=== PATIENT | female | born 1945 | race Caucasian/White ===

== ENCOUNTER 2019-09-02 13:57 | Outpatient (CLI) | payer MEDICARE, OTHER, SELFPAY ==
--- NOTE | 2019-09-02 14:03 | US_ITS ---
WS: [id number] ULTRASOUND RIGHT BREAST HISTORY: RT BREAST PAIN COMPARISON: Mammogram 06/29/2019 and 04/01/2016 TECHNIQUE: 2-D and Doppler. Patient describes pain within the breast. There is a small cyst at 10:00 measuring 4 x 3 x 4 mm. No i ncreased vascularity. No suspicious shadowing or mass identified. Normal normal fibroglandular patter n seen on the recent mammogram.. There are a few scattered calcifications. US/US breast RT complete [id number] IMPRESSION: BI-RADS: 2-Benign FOLLOW-UP: See Report No ultrasound abnormality RIGHT breast. Residual annual mammograms.
== END 2019-09-02 13:58 | disposition home or self-care (01) ==
PROVIDERS: Family Provider Family Medicine; PCP Family Medicine; Visit Provider Family Medicine
DX: N64.4 Mastodynia (principal)
CPT/HCPCS: 76641

== ENCOUNTER 2019-10-04 08:54 | Outpatient (CLI) | payer MEDICARE, OTHER, SELFPAY ==
[2019-10-04 09:15] VITALS: BMI 36.2
--- NOTE | 2019-10-04 09:17 | ECG_ITS ---
NAME OF STUDY: LEXISCAN SESTAMIBI STRESS TEST INDICATION: Chest Pain, NOTE: Please note that this is the electrocardiogram portion of the Lexiscan/Sestamibi stress test. The perfusion scan will be documented separately. DATA: Baseline heart rate was 42 beats per minute. Baseline blood pressure was 130/60 millimeters of mercury. Target heart rate was 148. Maximum heart rate achieved was 91. which was 61 % of the predicted target heart rate. Maximum blood pressure was 171/70 millimeters of mercury. The reason for ending the test was completion of the protocol. The patient did not experience any symptoms. ELECTROCARDIOGRAM: BASELINE: Sinus bradycardia. Normal axis. Otherwise, no ST-T changes suggestive of ischemia noted. No arrhythmia noted. EXERCISE: After Lexiscan injection, no ST-T changes suggestive of ischemic noted. No arrhythmia noted. CONCLUSION: Please note due to baseline abnormality of the EKG specificity and sensitivity of the EKG portion of LexiScan MIBI stress test will be low 1. EKG not suggestive of ischemia. Patient had sinus bradycardia at the baseline 2. Lexiscan injection unremarkable. 3. Perfusion scan will be documented separately. Electronically Signed On 10-04-2019 19:23:38 CDT by Michelle Villalpando M.D. [id number]
--- NOTE | 2019-10-04 09:18 | NMCV_ITS ---
NM trevor perf SPECT r/s* [id number] Hilda Crespo Age: 74 Gender: F : 1945 Exam Date: 10/04/2019 10:14 Ordering Phys: Darwin Peralta MD Technologist: JENNA Waite Exam Location: [facility] Indications: Chest pain STRESS TEST [facility] IMAGE PROTOCOL Rest/Stress 1 Lexiscan Day Radiopharmaceutical Dose (mCi) Administration Site Administered by Rest: Tc-99m 10.4 IV JENNA Waite Sestamibi Stress:Tc-99m 32.9 IV JENNA Waite Sestamibi Rest: 04-Oct-2019 60 Discovery 630 Stress: 04-Oct-2019 45 Discovery 630 0.4mg Lexiscan. Supine position only as patient was unable to lay prone. SPECT RESULTS Technical Quality: Good Raw Data Analysis: Breast attenuation Image Corrections: No attenuation or motion correction applied Summed Stress Score: 4 Summed Rest Score: 6 Summed Difference Score: 2 PERFUSION FINDINGS Small sized perfusion abnormality of mild severity of mid to apical inferolateral, apical inferior, apical septal and apical blanc on rest images with subtle reversibility in apical inferolateral wall on supine stress images. There is improved tracer uptake in apical blanc on stress images. FUNCTIONAL RESULTS (calculated via Gated SPECT) Stress Image LV EF (%): 63 Stress EDV (mL):72 TID: 0.95 Stress ESV (mL):27 FUNCTIONAL FINDINGS: The left ventricle is normal in size. Transient Ischemia Dilatation of 0.95. There is normal left ventricular systolic function. The left ventricular ejection fraction is normal with a value of 63%. There is normal left ventricular wall thickening. Normal end-diastolic and end-systolic volume. IMPRESSIONS 1. Small sized perfusion abnormality of mid to apical inferolateral, apical inferior, apical septal and apical blanc with improved tracer uptake in apical blanc on stress images. There is subtle reversibility in apical inferolateral wall on supine stress images. 2. These findings are likely suggestive of attenuation artifact in absence of prone imaging. 3. Overall left ventricular systolic function is normal without regional wall motion abnormalities. 4. The left ventricular ejection fraction is normal with a value of 63%. 5. No prior similar studies to compare. Sowmya Garcia MD (Electronically Signed) Final Date: 05 Oct 2019 13:25 S
[2019-10-04 10:59] VITALS: BP 163/71; PULSE 79
[2019-10-04] MEDS: regadenoson 0.4 Mg/5 ml Syringe IVP (10:59)
[2019-10-04] MEDS: aminophylline 25 mg/mL SDV 10 mL IVP (11:09)
== END 2019-10-04 08:55 | disposition home or self-care (01) ==
LOC: RAD 08:59
PROVIDERS: Family Provider Family Medicine; PCP Family Medicine; Visit Provider Internal Medicine Cardiovascular Disease
DX: R07.9 Chest pain, unspecified (principal)
CPT/HCPCS: 78452; 93017; 96374; A9500; J0280; J2785

== ENCOUNTER → 2020-03-08 14:25 | Outpatient (BNVA) | payer MEDICARE, OTHER, SELFPAY | PROVIDERS: Family Provider Family Medicine; PCP Family Medicine; Visit Provider Obstetrics & Gynecology | DX: R32 Unspecified urinary incontinence (principal) | CPT/HCPCS: 80053 ==

== ENCOUNTER 2020-05-11 15:24 | Outpatient (CLI) | payer MEDICARE, OTHER, SELFPAY ==
--- NOTE | 2020-05-11 15:40 | CT_ITS ---
WS: [id number] CT LUMBAR SPINE TECHNIQUE: Noncontrast CT of the lumbar spine with coronal and sagittal reformatted images. CLINICAL INFORMATION: POST LAMINECTOMY SYNDROME COMPARISON: CT 7 16,019 DLP: 1852.[address] scans at [facility] use at least one of these dose optimization techniques: automat ed exposure control; mA and/or kV adjustment per patient size (includes targeted exams where dose is matched to clinical indication); or iterative reconstruction. FINDINGS: Mild lumbar curve convex right. Moderate spondylitic changes. Disc space narrowing throughout the lum bar spine with vacuum disc phenomenon. Pedicle screw fixation L4-5. Hardware appears intact. Interbod y fusion L4-5. Right L4-L5 and L5-S1 hemilaminectomies. L1-L2: Mild disc osteophyte complex with endplate ridging. Moderate left and no significant right for aminal narrowing. Mild facet arthropathy. Slight narrowing of the left subarticular recess. L2-L3: Disc osteophyte complex with endplate ridging. Slight impingement on the left subarticular rec ess. Moderate left and no significant right foraminal narrowing. Mild facet arthropathy. L3-L4: Right shallow subarticular protrusion. Impingement right subarticular recess. Mild left and no significant right foraminal narrowing. Mild facet arthropathy. Mild central canal stenosis. Mild fac et arthropathy. L4-L5: Pedicle screw fixation with interbody fusion. Spinal canal and foramen are patent. L5-S1: Mild disc bulging with osteophytic ridging. Vacuum disc phenomenon. Mild to moderate left and mild right foraminal narrowing. Mild facet arthropathy. Visualized pelvic bony structures: Normal. Paravertebral soft tissues: Normal. Incidental sclerotic bone island left sacrum. CT/CT lumbar spine wo con* [id number] IMPRESSION: 1. Mild lumbar curve. No acute compression. Stable postoperative changes pedic le screw fixation L4-5 with interbody fusion. 2. Mild central canal stenosis L3-4 is stable from previous. 3. Multilevel mild to moderate bony foraminal narrowing worse at left L1-2, le ft L2-3, left L3-4 and left L5-S1. 4. Shallow right subarticular protrusion L3-4 with mild central canal stenosis is unchanged. 5. Overall no significant changes since 2019
== END 2020-05-11 15:25 | disposition home or self-care (01) ==
LOC: RADWPI 15:29
PROVIDERS: PCP Family Medicine; Visit Provider Anesthesiology Pain Medicine
DX: M96.1 Postlaminectomy syndrome, not elsewhere classified (principal); M51.26 Other intervertebral disc displacement, lumbar region; M48.061 Spinal stenosis, lumbar region without neurogenic claudication
CPT/HCPCS: 72131

== ENCOUNTER 2021-01-30 12:15 | Outpatient (CLI) | payer MEDICARE, OTHER, SELFPAY | END 2021-01-30 12:16 | disposition home or self-care (01) | LOC: SLEEP 01-31 15:36 | PROVIDERS: PCP Family Medicine; Visit Provider Family Medicine | DX: G47.10 Hypersomnia, unspecified (principal) | CPT/HCPCS: G0399 ==

== ENCOUNTER 2022-01-24 12:46 | Outpatient (CLI) | payer MEDICARE, OTHER, SELFPAY ==
--- NOTE | 2022-01-24 12:56 | MM_ITS ---
WS: [id number] BILATERAL 3D TOMOSYNTHESIS DIGITAL DIAGNOSTIC MAMMOGRAPHY WITH CAD CLINICAL INFORMATION: ABNORMAL MAMMO COMPARISON: Outside examination December 26, 2021 TECHNIQUE: Bilateral CC, MLO, and ML views. FINDINGS: Scattered fibroglandular densities bilaterally. Punctate and lucent centered calcifications. Secretor y calcifications. Vascular calcification. Bilateral nodular breast tissue is similar in appearance to the outside examination. Ultrasound described below. ULTRASOUND BREAST BILATERAL TECHNIQUE: Ultrasound bilateral breast focused area of concern. CLINICAL INFORMATION: ABNORMAL MAMMO COMPARISON: None. FINDINGS: Ultrasound RIGHT breast 9-11 o'clock and ultrasound LEFT breast 3-5 o'clock Simple breast cysts are noted bilaterally. Largest in the RIGHT breast at the 11:00 position measurin g 5 x 4 x 5 mm. Sr. subcentimeter in size. No suspicious lesions to target for biopsy. Recommend retu rn to annual screening mammography. MM/[place] [id number] IMPRESSION: BI-RADS 2 benign Recommend return to annual screening mammography.
== END 2022-01-24 12:47 | disposition home or self-care (01) ==
LOC: RAD 12:47
PROVIDERS: PCP Family Medicine; Visit Provider Family Medicine
DX: R92.8 Other abnormal and inconclusive findings on diagnostic imaging of breast (principal)
CPT/HCPCS: 76642; 77062

== ENCOUNTER → 2022-10-07 14:23 | Outpatient (BNVA) | payer MEDICARE, OTHER, SELFPAY | PROVIDERS: PCP Family Medicine; Visit Provider Physician Assistant | DX: Z98.1 Arthrodesis status (principal) | CPT/HCPCS: 99203 ==

== ENCOUNTER → 2022-10-07 14:25 | Outpatient (BNVA) | payer MEDICARE, OTHER, SELFPAY | PROVIDERS: PCP Family Medicine; Visit Provider Physician Assistant | DX: M54.50 Low back pain, unspecified (principal); Z98.1 Arthrodesis status | CPT/HCPCS: 72110; 99203 ==

== ENCOUNTER 2022-10-15 09:49 | Outpatient (CLI) | payer MEDICARE, OTHER, SELFPAY ==
--- NOTE | 2022-10-15 10:15 | MR_ITS ---
WS: [id number] MRI LUMBAR SPINE NONCONTRAST TECHNIQUE: Sagittal T1, T2 and STIR imaging. Axial T1 and T2 imaging. CLINICAL INFORMATION: lower back pain COMPARISON: CT 2019 and MRI 2008 FINDINGS: Prior postoperative changes pedicle screw fixation L4 and L5 with interbody fusion. Associated rosita ctomy defects. Disc bulging worse at L1-L2, L2-L3, L3-L4. L1-L2: Mild disc bulging with slight effacement of ventral thecal sac. Slight impingement on the LEFT subarticular recess and traversing LEFT L2 nerve root. Mild to moderate LEFT foraminal narrowing. RI GHT foramen is patent. Mild facet arthropathy. L2-L3: Mild annular bulging. Impingement LEFT subarticular recess. Moderate facet arthropathy. Modera te LEFT foraminal narrowing. Mild RIGHT foraminal narrowing. L3-L4: Mild disc bulging with mild central canal stenosis. Impingement traversing L4 nerve roots RIGH T greater than LEFT. Moderate facet arthropathy. Mild RIGHT greater than LEFT foraminal narrowing. L4-L5: Slight anterolisthesis L4 on L5. Pedicle screw fixation with laminectomy defects. Mild RIGHT f oraminal narrowing. LEFT foramen is patent. Spinal canal has been decompressed. L5-S1: Postoperative changes pedicle screw fixation with laminectomy defects. Spinal canal is patent. 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 Mild LEFT greater than RIGHT bony foraminal narrowing. Moderate facet arthropathy. Visualized pelvic bony structures: Normal. Paravertebral soft tissues: Normal. MR/MR lumbar spine wo con* [id number] IMPRESSION: 1. Mild lumbar curve. No acute compression. 2. Pedicle screw fixation L4-L5 laminectomy defects. Interbody fusion. 3. 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 Mild to moderate central canal stenosis L3-L4 progressed since 2010. Imping ement on the RIGHT greater than LEFT subarticular recess. 5. Disc bulging L1-L2 and L2-L3 with impingement on the LEFT subarticular rece ss 6. Mild to moderate LEFT L1-L2, moderate LEFT L2-L3, moderate RIGHT L3-L4 and mild bilateral L5-S1 foraminal narrowing.
== END 2022-10-15 09:50 | disposition home or self-care (01) ==
LOC: RAD 09:56
PROVIDERS: PCP Family Medicine; Visit Provider Physician Assistant
DX: M48.061 Spinal stenosis, lumbar region without neurogenic claudication (principal); M51.36 Other intervertebral disc degeneration, lumbar region; M54.50 Low back pain, unspecified
CPT/HCPCS: 72148; 99203

== ENCOUNTER 2022-11-04 11:49 | Outpatient (RCR) | payer MEDICARE, OTHER, SELFPAY | END 2022-11-27 23:59 | disposition home or self-care (01) | LOC: SPT 11:49 | PROVIDERS: PCP Family Medicine; Visit Provider Physician Assistant | DX: M25.562 Pain in left knee (principal) | CPT/HCPCS: 97110; 97162 ==

== ENCOUNTER 2022-11-06 16:14 | Emergency (ER) | payer MEDICARE, OTHER, SELFPAY ==
[2022-11-06 16:18] VITALS: BP 195/67; PULSE 60; RESP 16; TEMP 36.6; O2SAT 96; BMI 35.6
--- NOTE | 2022-11-06 16:23 | ECG_ITS ---
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 Measurements Intervals Thornton Rate: 52 P: -53 MO: 311 QRS: 68 QRSD: 103 T: 66 QT: 373 QTc: 348 Interpretive Statements SINUS RHYTHM BASELINE ARTIFACT No previous ECG available for comparison Electronically Signed On 11-06-2022 17:59:08 CDT by Apollo Cota M.D. [id number]
--- NOTE | 2022-11-06 16:23 | CTR_ITS ---
PROCEDURE INFORMATION: Exam: CT Head Without Contrast Exam date and time: 11/06/2022 4:36 PM Age: 77 years old Clinical indication: Altered mental status/memory loss; Confusion or disorientation TECHNIQUE: Imaging protocol: Computed tomography of the head without contrast. Radiation optimization: All CT scans at this facility use at least one of these dose optimization techniques: automated exposure control; mA and/or kV adjustment per patient size (includes targeted exams where dose is matched to clinical indication); or iterative reconstruction. REPORTING DATA: Count of CT and Cardiac NM exams in prior 12 months: This patient has received 0 known CTs and 0 known cardiac nuclear medicine studies in the 12 months prior to the current study. COMPARISON: No relevant prior studies available. RADIATION DOSE METRICS: Total DLP (mGy-cm): 935 FINDINGS: Brain: No hemorrhage. No edema. Mild diffuse cerebral atrophy. No significant white matter disease. No mass effect. Cerebral ventricles: No ventriculomegaly. Paranasal sinuses: Visualized sinuses are unremarkable. No fluid levels. Mastoid air cells: Visualized mastoid air cells are well aerated. Bones/joints: Unremarkable. No acute fracture. Soft tissues: Unremarkable. CT/CT head wo con* [id number] IMPRESSION: No acute intracranial abnormality.
--- NOTE | 2022-11-06 16:35 | ED_ITS ---
HPI - Altered Mental Status General: Chief Complaint: Altered Mental Status Stated Complaint: stroke like symptoms Time Seen by Provider: 11/06/22 16:23 [facility] ED PFSH: Medical History Arthritis Asthma Chest pain Diabetes mellitus HTN (hypertension) Osteoporosis Surgical History Previous back surgery X2 S/P shoulder surgery Left rotator cuff surgery S/P total abdominal hysterectomy and bilateral salpingo-oophorectomy (~1995) [place] Pritchard [place] [facility] [place], [place] 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 Kam Family History Father Myocardial infarction Brother Cancer colon ca Social History Smoking and tobacco status: former smoker Alcohol intake: never Substance/Drug Use: never Course Vital Signs: Vital signs: Vital Signs Temperature 97.9 F 11/06/22 16:18 Pulse Rate 60 11/06/22 16:18 Respiratory Rate 16 11/06/22 16:18 Blood Pressure 195/67 11/06/22 16:18 Pulse Oximetry 96 11/06/22 16:18 Oxygen Delivery Me thod Room Air 11/06/22 16:18 Discharge Plan Discharge Condition: Stable Prescriptions: No Action simvastatin 20 mg tablet 20 mg PO DAILY loratadine [Claritin] 10 mg tablet 10 mg PO DAILY metformin 1,000 mg tablet 1,000 mg PO DAILY Mucinex DM 30-600 mg tablet extended release 12 hr 1 tab PO Q12H PRN venlafaxine 75 mg tablet 18.75 mg PO DAILY hydrocodone-acetaminophen 10-325 mg tablet 2 tab PO QID PRN alprazolam 0.5 mg tablet 0.5 mg PO DAILY trazodone 50 mg tablet 50 mg PO DAILY Rx Instructions: 150mg AM and 50mg in PM baclofen 10 mg tablet 10 mg PO TID oxybutynin chloride 10 mg tablet extended release 24hr 10 mg PO DAILY celecoxib [Celebrex] 200 mg capsule 200 mg PO DAILY Metamucil 3.4 gram/5.4 gram powder 1 tbsp PO DAILY Rx Instructions: mix into at least 8 oz of water or juice before administering lisinopril 10 mg tablet 10 mg PO BID 90 Days Qty: 180 3RF Referrals: Darwin Peralta MD [Primary Care Provider] - Patient Instructions: Altered Mental Status (ED), Alcohol Intoxication (ED), Benzodiazepine Use Disorder (ED), Concussion (ED), Dementia (ED), Subarachnoid Hemorrhage (GEN), Hyponatremia (ED), Non-diabetic Hypoglycemia (ED), Hypoglycemia in a Person with Diabetes (ED) Coding Level of Care Code ED Napper Grinder for Oumar Bradley
--- NOTE | 2022-11-06 16:38 | W.ED.NEUROSD ---
HPI - Neuro Symptoms/Deficit General: Chief Complaint: Altered Mental Status Stated Complaint: stroke like symptoms Time Seen by Provider: 11/06/22 16:23 Source: patient Mode of arrival: ambulatory History of Present Illness: 77-year-old female presents emergency room complaining of feeling confused and difficulty speaking this morning. She was last known to be well last night around 9:00. She woke up this morning she was confused somewhat disoriented difficult time making a phone call. Patient and the family relate that she tried to use her TENS unit for her back to make a phone call. She was supposed to have a physical therapy appointment this afternoon at 1 was not able to get a hold of them states she lost the phone number. Earlier she was having some difficulty with her speech that seems to have resolved now. She denies any headache no chest pain. Onset (ago): hour(s) (20) Last Observed Normal: 21:00 Location: speech Severity: mild Relieving factors: none Exacerbating factors: none Associated symptoms: Deny chest pain, cough, diaphoresis, fevers/chills, headache(s), anorexia, malaise, nausea, seizures, short of breath, syncope, tingling, vertigo, vomiting or weakness Treatments Prior to Arrival: none Review of Systems Const: Reports: fatigue; Denies: fever(s), chills, malaise or diaphoresis ENMT: Denies: throat pain, ear or mastoid pain, nasal discharge or nasal congestion Card: Denies: chest pain, palpitations, irregular heart rhythm or syncope Resp: Denies: dyspnea, productive cough or non-productive cough GI: Denies: abdominal pain, nausea or vomiting : Denies: flank pain, difficulty voiding, dysuria, urinary frequency or urinary urgency Musc: Denies: neck pain or back pain Skin/Breast: Denies: rash or pruritus Neuro: Reports: weakness in extremities; Denies: headache(s), numbness in extremities or vertigo PFSH ED PFSH: Medical History Arthritis Asthma Chest pain Diabetes mellitus HTN (hypertension) Osteoporosis Surgical History Previous back surgery X2 S/P shoulder surgery Left rotator cuff surgery S/P total abdominal hysterectomy and bilateral salpingo-oophorectomy (~1995) [place] [facility] [place] 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 Kam Family History Father Myocardial infarction Brother Cancer colon ca Social History Smoking and tobacco status: former smoker Alcohol intake: never Substance/Drug Use: never NIH stroke score NIHSS: Level Of Consciousness - 1a: 0 Level Of Consciousness Questions - 1b: Both Correct Level Of Consciousness Commands - 1c: Both Correct Best Gaze - 2: Normal Visual Karimi - 3: No Visual Loss Facial Palsy - 4: Normal Motor Arm Right - 5: No Drift Motor Arm Left - 5: No Drift Motor Leg Right - 6: No Drift Motor Leg Left - 6: No Drift Limb Ataxia - 7: Absent Sensory - 8: Normal Best Language - 9: No Aphasia Dysarthia - 10: Normal Extinction And Inattention - 11: 0 Score: Total Score: 0 Physical Exam Const: GENERAL APPEARANCE: cooperative and comfortable ORIENTATION/CONSCIOUSNESS: Yes awake, Yes oriented to person, Yes oriented to place and Yes oriented to time HENMT: COMMON NORMALS: normocephalic, atraumatic and hearing grossly normal bilaterally HEAD & SCALP: normocephalic and atraumatic Resp: COMMON NORMALS: normal respiratory effort, No retractions, No use of accessory muscles and clear to auscultation bilaterally AUSCULTATION: clear to auscultation bilaterally Cardio: COMMON NORMALS: regular rate, regular rhythm and No murmurs present (Cardio) RATE: regular rate RHYTHM: regular rhythm GI: COMMON NORMALS: Soft to palpation and No hepatosplenomegaly present AUSCULTATION: Yes normoactive bowel sounds PALPATION: Yes Soft to palpation, No Tenderness to palpation present (GI), No Guarding due to palpation present (GI) and Yes No hepatosplenomegaly present Extremity: COMMON NORMALS: normal to inspection, capillary refill normal, no clubbing, cyanosis or edema, no calf tenderness and no pedal edema Neuro: SENSORIUM/ORIENTATION: Yes oriented to person, Yes oriented to place and Yes oriented to time Skin: COMMON NORMALS: no rashes or lesions noted GENERAL SKIN EXAM: no rashes or lesions noted Course Vital Signs: Vital signs: Vital Signs Temperature 97.9 F 11/06/22 16:18 Pulse Rate 60 11/06/22 16:18 Respiratory Rate 16 11/06/22 16:18 Blood Pressure 153/72 11/06/22 17:34 Pulse Oximetry 96 11/06/22 16:18 Oxygen Delivery Me thod Room Air 11/06/22 16:18 MDM - Neuro Symptoms/Deficit Medical Decision Making Patient awake alert and oriented no focal neurologic deficits noted NIH score is still 0. She is convinced that she may have taken extra medicine which caused her to be confused earlier this morning. While this certainly possible and we cannot confirm it she is asymptomatic now head CT is negative remainder of her work-up is negative. We will discharge patient home started on Plavix and aspirin as well as atorvastatin 40 mg daily. Set her up for an outpatient MRI carotid duplex echocardiogram and 48-hour Holter monitor return if has any further problems. Medical Records I reviewed the patient's medical records. Lab Data I reviewed the patient's lab results. 11/06/22 16:45 11/06/22 16:[address] 11/06/22 16:23 IMPRESSION: No acute intracranial abnormality. Laboratory Results WBC 7.8 10^3/uL (4.0-10.0) 11/06/22 16:45 RBC 5.23 10^6/uL (4.1-5.3) 11/06/22 16:45 Hgb 15.2 g/dL (11.5-15.3) 11/06/22 16:45 Hct 49.5 % (37.0-47.0) H 11/06/22 16:45 MCV 94.6 fl (81-99) 11/06/22 16:45 MCH 29.1 pg (28.0-34.0) 11/06/22 16:45 MCHC 30.7 g/dL (30.0-36.0) 11/06/22 16:45 RDW 13.3 % (12.1-15.1) 11/06/22 16:45 Plt Count 200 10^3/cmm (130-400) 11/06/22 16:45 MPV 8.9 fL (7.4-10.4) 11/06/22 16:45 Neut % (Auto) 78.4 % 11/06/22 16:45 Lymph % (Auto) 16.4 % 11/06/22 16:45 [place] % (Auto) 3.1 % 11/06/22 16:45 Eos % (Auto) 1.3 % 11/06/22 16:45 Baso % (Auto) 0.4 % 11/06/22 16:45 Neut # (Auto) 6.08 10^3/uL (1.8-7.7) 11/06/22 16:45 Lymph # (Auto) 1.3 10^3/uL (0.8-4.8) 11/06/22 16:45 [place] # (Auto) 0.2 10^3/uL (0.2-0.9) 11/06/22 16:45 Eos # (Auto) 0.1 10^3/uL (0.0-0.8) 11/06/22 16:45 Baso # (Auto) 0.0 10^3/uL (0.0-0.1) 11/06/22 16:45 Nucleated RBC % (auto) 0 % 11/06/22 16:45 Nucleated RBCs # 0.0 /100WBC 11/06/22 16:45 Sodium 143 mmol/L (136-145) 11/06/22 16:45 Potassium 4.9 mmol/L (3.5-5.1) 11/06/22 16:45 Chloride 106 mmol/L (98-107) 11/06/22 16:45 Carbon Dioxide 26 mmol/L (22-29) 11/06/22 16:45 Anion Gap 15.9 (5-19) 11/06/22 16:45 BUN 31 mg/dL (8-23) H 11/06/22 16:45 Creatinine 1.3 mg/dL (0.5-0.9) H 11/06/22 16:45 GFR Calculation Not Reportable 11/06/22 16:45 Glucose 140 mg/dL (65-115) H 11/06/22 16:45 POC Glucose 157 mg/dL (70-110) H 11/06/22 17:12 Calculated Osmolality 305 mOsm/kg (285-295) H 11/06/22 16:45 Lactic Acid 2.2 mmol/L (0.5-2.2) 11/06/22 16:45 Calcium 10.8 mg/dL (8.5-10.5) H 11/06/22 16:45 Total Bilirubin 0.4 mg/dL (0.15-1.2) 11/06/22 16:45 AST 13 U/L (0-32) 11/06/22 16:45 ALT 18 U/L (0-33) 11/06/22 16:45 Alkaline Phosphatase 69 U/L (35-105) 11/06/22 16:45 Creatine Kinase 19 U/L (26-192) L 11/06/22 16:45 Total Protein 6.8 g/dL (6.6-8.7) 11/06/22 16:45 Albumin 4.3 g/dL (3.5-5.2) 11/06/22 16:45 Globulin 2.5 g/dL (1.3-4.6) 11/06/22 16:45 Discharge Plan Discharge Patient Disposition: Home Clinical Impression: TIA (transient ischemic attack) Condition: Stable Prescriptions: New clopidogrel 75 mg tablet 75 mg PO DAILY Qty: 30 0RF atorvastatin 40 mg tablet 40 mg PO DAILY Qty: 30 0RF aspirin 81 mg tablet,delayed release (DR/EC) 81 mg PO DAILY Qty: 30 0RF Discontinued simvastatin 20 mg tablet 20 mg PO DAILY No Action loratadine [Claritin] 10 mg tablet 10 mg PO DAILY metformin 1,000 mg tablet 1,000 mg PO DAILY Mucinex DM 30-600 mg tablet extended release 12 hr 1 tab PO Q12H PRN venlafaxine 75 mg tablet 18.75 mg PO DAILY hydrocodone-acetaminophen 10-325 mg tablet 2 tab PO QID PRN alprazolam 0.5 mg tablet 0.5 mg PO DAILY trazodone 50 mg tablet 50 mg PO DAILY Rx Instructions: 150mg AM and 50mg in PM baclofen 10 mg tablet 10 mg PO TID oxybutynin chloride 10 mg tablet extended release 24hr 10 mg PO DAILY celecoxib [Celebrex] 200 mg capsule 200 mg PO DAILY Metamucil 3.4 gram/5.4 gram powder 1 tbsp PO DAILY Rx Instructions: mix into at least 8 oz of water or juice before administering lisinopril 10 mg tablet 10 mg PO BID 90 Days Qty: 180 3RF Discharge Orders: Discharge ED (Routine); Ordered 11/06/22 Ordered By: Ivan Page Referrals: Darwin Peralta MD [Primary Care Provider] - Patient Instructions: Transient Ischemic Attack (ED) Activity Restrictions/Additional Instructions: You are seen today for TIA. All your symptoms have resolved. CT of your head was negative. Recommend that you start aspirin and clopidogrel daily as well as atorvastatin 40 mg daily Case management make arrangements for you to follow-up with an outpatient MRI of the head carotid duplex and echocardiogram. 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
[2022-11-06 16:58] LABS: Basophils % 0.4 %; Eosinophils # 0.1 10^3/uL (0.0-0.8); Eosinophils % 1.3 %; Hematocrit 49.5 % (37.0-47.0); Hemoglobin 15.2 g/dL (11.5-15.3); Lymphocytes # 1.3 10^3/uL (0.8-4.8); Lymphocytes % 16.4 %; Mean Corpuscular HGB Conc 30.7 g/dL (30.0-36.0); Mean Corpuscular Hemoglobin 29.1 pg (28.0-34.0); Mean Corpuscular Volume 94.6 fl (81-99); Mean Platelet Volume 8.9 fL (7.4-10.4); Monocytes # 0.2 10^3/uL (0.2-0.9); Monocytes % 3.1 %; Neutrophils # 6.08 10^3/uL (1.8-7.7); Neutrophils % 78.4 %; Nucleated Red Blood Cells % 0 %; Platelet Count 200 10^3/cmm (130-400); Red Blood Count 5.23 10^6/uL (4.1-5.3); Red Cell Distribution Width 13.3 % (12.1-15.1); White Blood Count 7.8 10^3/uL (4.0-10.0)
[2022-11-06 17:15] LABS: Glucose Point of Care 157 mg/dL (70-110)
[2022-11-06 17:34] VITALS: BP 153/72
[2022-11-06 17:34] LABS: Alanine Aminotransferase 18 U/L (0-33); Albumin Level 4.3 g/dL (3.5-5.2); Alkaline Phosphatase 69 U/L (35-105); Anion Gap 15.9 (5-19); Aspartate Amino Transferase 13 U/L (0-32); Blood Urea Nitrogen 31 mg/dL (8-23); Calcium 10.8 mg/dL (8.5-10.5); Carbon Dioxide 26 mmol/L (22-29); Chloride 106 mmol/L (98-107); Creatine Phosphokinase 19 U/L (26-192); Globulin 2.5 g/dL (1.3-4.6); Glucose 140 mg/dL (65-115); Osmolality Calculated 305 mOsm/kg (285-295); Potassium 4.9 mmol/L (3.5-5.1); Sodium 143 mmol/L (136-145); Total Bilirubin 0.4 mg/dL (0.15-1.2); Total Protein 6.8 g/dL (6.6-8.7)
[2022-11-06 17:35] LABS: Lactic Sepsis W/Reflex 2.2 mmol/L (0.5-2.2)
--- NOTE | 2022-11-06 17:40 | ECG_ITS ---
[facility] Test Date: 2022-11-06 Pat Name: Hilda Crespo Department: Room: Gender: Female Senior It Auditor: : 1945 Requested By: Ivan Bautista Order Number: [id number] Oni MD: Apollo Cota M.D. Measurements Intervals [place] Rate: 52 P: 65 [place]: 188 QRS: 70 QRSD: 99 T: 60 QT: 378 QTc: 354 Interpretive Statements SINUS BRADYCARDIA WITH SINUS ARRHYTHMIA Compared to ECG 11/06/2022 16:48:46 Sinus rhythm no longer present Electronically Signed On 11-06-2022 18:45:52 CDT by Apollo Cota M.D. [id number] f
[2022-11-06 18:41] LABS: Reflex Lactate Order REFLEX LACTIC ORDERD
--- NOTE | 2022-11-07 09:30 | DCPLANNER ---
Addendum entered by Traci Lynn 12/05/22 10:49: Patient had a halter monitor scheduled - patient did attend appointment. Addendum entered by Traci Lynn 12/05/22 10:47: Patient had a carotid scheduled - patient did attend appointment. Addendum entered by Traci Lynn 12/05/22 10:46: Patient had an MRI and an echo scheduled - patient attended both appointments. Addendum entered by Traci Lynn 11/14/22 09:19: Patient has a follow up appointment scheduled for Friday, December 23, 2022 at 3:[address] Kaplan at neurology. Addendum entered by Traci Lynn 11/11/22 10:19: Patient has the following appointments scheduled: MRI - Thursday, 6.27.23 at 2:30 Echo - Thursday, 06.27.23 at 1:00 Carotid - Thursday, .27.23 by 1:45 48 hour halter - Thursday, 06.21.23 at 9:00 Original Note: logistics planning manager had message to schedule an outpatient MRI, echo and carotid. logistics planning manager faxed signed order to centralized scheduling, who will call patient with appointment information. logistics planning manager had message to schedule an out patient 48 hour halter monitor - case folder faxed signed order to heart care, who will call patient with appointment information.
--- NOTE | 2022-11-07 09:33 | DCPLANNER ---
Addendum entered by Traci Lynn 12/25/22 07:25: Appointment with neurology was cancelled Original Note: casino duty manager had message to schedule a follow up appointment for patient with neurology. casino duty manager sent patients information to the front office staff at neurology. Patients information will be printed and reviewed. Clinic will call patient with appointment information.
== END 2022-11-06 18:21 | disposition home or self-care (01) ==
PROVIDERS: Emergency Provider Family Medicine; PCP Family Medicine
DX: G45.9 Transient cerebral ischemic attack, unspecified (principal); E11.9 Type 2 diabetes mellitus without complications; I10 Essential (primary) hypertension
CPT/HCPCS: 36415; 36416; 70450; 80053; 82550; 82962; 83605; 85025; 93005; 99285

== ENCOUNTER → 2022-11-19 08:37 | Outpatient (BNVA) | payer MEDICARE, OTHER, SELFPAY | PROVIDERS: PCP Family Medicine; Visit Provider Internal Medicine Cardiovascular Disease | DX: R07.9 Chest pain, unspecified (principal); G45.9 Transient cerebral ischemic attack, unspecified | CPT/HCPCS: 93225 ==

== ENCOUNTER 2022-11-25 12:20 | Outpatient (CLI) | payer MEDICARE, OTHER, SELFPAY ==
--- NOTE | 2022-11-25 12:56 | USCV_ITS ---
Hilda Crespo Age: 77 Gender: F : 1945 Exam Date: 11/25/2022 14:01 Ordering Phys: Ivan Page DO Technologist: CT [place]am [place] [facility] [place]ication: tia Risk Factors: Previous Vascular Surgery: Right Brachial BP: / Left Brachial BP: / Right Left Velocity (cm/s) Spectral Plaque Velocity (cm/s) Spectral Plaque Syst/Diast Broadening Syst/Diast Broadening 68.30/ 10.30 Prox CCA 98.20 / 10.10 63.70/ 10.60 Mid CCA 92.10 / 14.20 59.20/ 10.90 Distal CCA 58.70 / 14.20 41.00/ 11.40 Prox ICA 49.50 / 12.70 68.90/ 21.10 Mid ICA 52.10 / 14.20 73.00/ 19.80 Distal ICA 61.80 / 15.40 53.20 ECA 65.60 1.07 ICA/CCA 0.63 Antegrade Vertebral Antegrade 44.40/ 11.10 cm/s 55.20/ 14.00 cm/s Tri Subclavian Tri 109.1 127.9 0 0 FINDINGS Comparison: none available. No significant elevation of systolic or diastolic velocities. Waveforms are normal. Minimal bilateral, intimal thickening with no elevation of velocity. CONCLUSIONS Bilateral ICA stenosis less than 50%. Minimal carotid atherosclerosis. Dr. Amanda Chaudhari DO (Electronically Signed) Final Date: 25 November 2022 16:39 S
--- NOTE | 2022-11-25 13:08 | USCV_ITS ---
Hilda Crespo Age: 77 Gender: F : 1945 Exam Date: 11/25/2022 14:29 Ordering Phys: Ivan Page DO Technologist: CT Exam Location: [facility] [place] Indication: sob BP: 145 / 80 HR: 44 Rhythm: Sinus Technical Quality: Adequate MEASUREMENTS (Male / Female) Normal Values 2D ECHO LV Diastolic Diameter PLAX 5.6 cm 4.2 - 5.9 / 3.9 - 5.3 cm LV Systolic Diameter PLAX 3.2 cm LV Chamber Size 2.9 cm IVS Diastolic Thickness 0.8 cm 0.6 - 1.0 / 0.6 - 0.9 cm IVS Systolic Thickness 1.1 cm LVPW Diastolic Thickness 1.0 cm 0.6 - 1.0 / 0.6 - 0.9 cm LVPW Systolic Thickness 1.8 cm RV Chamber Size 2.6 cm LVOT Diameter 2.0 cm LV Ejection Fraction 2D Teich 72.5 % LV Ejection Fraction MOD 2C 67.2 % LV Ejection Fraction 2C AL 67.6 % LA Diameter 4.2 cm LA Width 2.4 cm LA Height 3.2 cm RA Width 3.1 cm RA Height 3.8 cm Aorta at Sinotubular Diameter 2.0 cm IVC Diameter 1.7 cm M-MODE Aortic Annulus Diameter 2.7 cm LA Ao Ratio MM 1.7 MV E Point Septal Separation 0.9 cm DOPPLER AV Peak Velocity 140.0 cm/s LVOT Peak Velocity 103.7 cm/s AV Area Cont Eq vti 1.5 cm squared AV Area Cont Eq pk 2.4 cm squared MV Area PHT 5.6 cm squared Mitral E to A Ratio 2.9 MV E' Velocity 63.0 cm/s Mitral E to MV E' Ratio 9.2 Mitral E to LV E' Lateral Ratio 10.0 Mitral E to LV E' Septal Ratio 8.6 TR Peak Velocity 244.8 cm/s TR Peak Gradient 24.0 mmHg TR Mean Velocity 194.0 cm/s TR Mean Gradient 17.2 mmHg TR Velocity Time Integral 80.7 cm TV Peak E Velocity 69.0 cm/s Right Atrial Pressure 3.0 mmHg Pulmonary Artery Systolic Pressu 27.0 mmHg PV Peak Velocity 120.0 cm/s RV Acceleration Time 0.1 s RV Ejection Time 0.4 s RV AcT/ET 0.2 FINDINGS Left Ventricle Normal left ventricular size and systolic function, EF 63 %. No regional wall motion abnormalities. Right Ventricle The right ventricle is normal in size and function. Right Atrium The right atrium is normal in size. Left Atrium The left atrium is normal in size. Mitral Valve Thickened mitral valve. Mild mitral valve regurgitation. Aortic Valve Thickened aortic valve. Tricuspid Valve Mild tricuspid valve regurgitation. Pulmonic Valve No gross abnormalities noted Pericardium Normal pericardium without effusion. Aorta Normal ascending aorta dimension. IVC The inferior vena cava appears normal. CONCLUSIONS Normal left ventricular size and systolic function, EF 63 %. No regional wall motion abnormalities. Minimally thickened aortic and mitral valves. Normal cardiac chamber sizes. Mild tricuspid valve regurgitation. Estimated pulmonary artery peak systolic pressure 27 mmHg There is no pericardial effusion. There are no intracardiac masses. No similar previous studies are available for comparison Dr Eve Tran MD [facility] (Electronically Signed) Final Date: 26 November 2022 07:16 S
--- NOTE | 2022-11-25 13:19 | MR_ITS ---
WS: [id number] MRI HEAD WITH CONTRAST TECHNIQUE: Sagittal T1, T2 axial, T2 axial FLAIR, axial susceptibility weighted imaging, axial diffus ion weighted images, and coronal T2 images were obtained. Pre and post-T1 axial and post T1 coronal i mages. ADC and FSPGR images. CLINICAL INFORMATION: TIA COMPARISON: CT November 06, 2022 FINDINGS: No evidence of restricted diffusion to suggest acute ischemia. Ventricular system and basal cisterns are patent. Mild small vessel changes. Moderate parenchymal volume loss. Normal posterior fossa. Norm al vascular flow voids at the skull base. No extra-axial fluid collections. No evidence of mass or ma ss effect. Paranasal sinuses and mastoid air cells well aerated. Normal posterior nasopharynx and par apharyngeal fat. No hemosiderin on susceptibly weighted images. Normal optic chiasm and pituitary infundibulum. No abnormal gadolinium enhancement. Normal dural veno us sinuses. MR/MR head wo/w con [id number] IMPRESSION: 1. No evidence of restricted diffusion to suggest acute ischemia. 2. Mild small vessel changes with moderate parenchymal volume loss. 3. No abnormal gadolinium enhancement. 4. No other acute findings.
[2022-11-25] MEDS: gadobenate dimeglumine 20 mL vial IV (15:31)
== END 2022-11-25 12:21 | disposition home or self-care (01) ==
PROVIDERS: PCP Family Medicine; Visit Provider Family Medicine
DX: I63.81 Other cerebral infarction due to occlusion or stenosis of small artery (principal); I35.8 Other nonrheumatic aortic valve disorders; I34.0 Nonrheumatic mitral (valve) insufficiency
CPT/HCPCS: 70553; 93306; 93880; A9577

== ENCOUNTER 2022-12-31 11:29 | Outpatient (CLI) | payer MEDICARE, OTHER, SELFPAY ==
--- NOTE | 2022-12-31 11:44 | MM_ITS ---
WS: [id number] BILATERAL 3D TOMOSYNTHESIS DIGITAL SCREENING MAMMOGRAPHY WITH CAD CLINICAL INFORMATION: SCREENING HISTORY: Screening mammogram. No current complaints. COMPARISON: 2021 TECHNIQUE: Bilateral CC and MLO views. FINDINGS: Scattered fibroglandular densities bilaterally. No suspicious focal mass, asymmetry, calcifications, or architectural distortion. No evidence of malignancy. Incidental punctate and secretory calcificati ons. Clustered calcifications. MM/[place] [id number] IMPRESSION: BI-RADS: 2-Benign FOLLOW UP: 1 Year Follow-up Recommend return to annual screening mammography.
== END 2022-12-31 11:30 | disposition home or self-care (01) ==
PROVIDERS: PCP Family Medicine; Visit Provider Family Medicine
DX: Z12.31 Encounter for screening mammogram for malignant neoplasm of breast (principal)
CPT/HCPCS: 77063; 77067

== ENCOUNTER 2023-01-19 12:50 | Outpatient (RCR) | payer MEDICARE, OTHER, SELFPAY | END 2023-01-29 23:59 | disposition home or self-care (01) | LOC: SPT 12:50 | PROVIDERS: PCP Family Medicine; Visit Provider Student in an Organized Health Care Education/Training Program | DX: Z47.1 Aftercare following joint replacement surgery (principal); Z96.652 Presence of left artificial knee joint | CPT/HCPCS: 97110; 97161 ==

== ENCOUNTER 2023-01-30 06:00 | Outpatient (RCR) | payer MEDICARE, OTHER, SELFPAY | END 2023-02-28 23:59 | disposition home or self-care (01) | LOC: SPT 06:00 | PROVIDERS: PCP Family Medicine; Visit Provider Student in an Organized Health Care Education/Training Program | DX: Z47.1 Aftercare following joint replacement surgery (principal); Z96.652 Presence of left artificial knee joint | CPT/HCPCS: 97032; 97110; G0283 ==

== ENCOUNTER 2023-03-01 06:00 | Outpatient (RCR) | payer MEDICARE, OTHER, SELFPAY | END 2023-03-31 23:59 | disposition home or self-care (01) | LOC: SPT 06:00 | PROVIDERS: PCP Family Medicine; Visit Provider Student in an Organized Health Care Education/Training Program | DX: M17.12 Unilateral primary osteoarthritis, left knee (principal) | CPT/HCPCS: 97110; G0283 ==

== ENCOUNTER 2024-01-04 15:09 | Outpatient (CLI) | payer MEDICARE, OTHER, SELFPAY ==
--- NOTE | 2024-01-04 15:18 | MM_ITS ---
WS: [id number] BILATERAL 3D TOMOSYNTHESIS DIGITAL SCREENING MAMMOGRAPHY WITH CAD CLINICAL INFORMATION: SCREENING HISTORY: Screening mammogram. No current complaints. COMPARISON: 2022 TECHNIQUE: Bilateral CC and MLO views. FINDINGS: The breasts are composed of heterogeneous fibroglandular density tissue, which can limit the detectio n of small underlying mass lesions. No suspicious mass, asymmetry, calcifications, or architectural d istortion. No evidence of malignancy. Secretory calcifications. Clustered calcifications LEFT breast. Vascular calcification. MM/[place] [id number] IMPRESSION: BI-RADS: 2-Benign FOLLOW UP: 1 Year Follow-up Recommend return to annual screening mammography.
== END 2024-01-04 15:10 | disposition home or self-care (01) ==
LOC: RAD 15:11
PROVIDERS: PCP Family Medicine; Visit Provider Family Medicine
DX: Z12.31 Encounter for screening mammogram for malignant neoplasm of breast (principal); R92.333 Mammographic heterogeneous density, bilateral breasts; R92.1 Mammographic calcification found on diagnostic imaging of breast
CPT/HCPCS: 77063; 77067

== ENCOUNTER 2024-09-07 13:20 | Outpatient (CLI) | payer MEDICARE, OTHER, SELFPAY ==
--- NOTE | 2024-09-07 13:24 | MR_ITS ---
WS: [id number] MRI BRAIN WITH HIGH-RESOLUTION IMAGING THROUGH THE INTERNAL AUDITORY CANALS WITHOUT AND WITH CONTRAST HISTORY: BILATERAL HEARING LOSS COMPARISON: 11/25/2022 TECHNIQUE: Multiplanar, multisequence imaging is performed through the brain. Additional 3 mm imaging performed in multiple planes through the internal auditory canal. Postcontrast imaging with 20 ml's of MultiHance. Several of the sequences are limited by motion. No acute intracranial hemorrhage, midline shift, edema or mass effect. Mild small vessel disease. Moderate parenchymal volume loss in the. Cerebrum. No significant cerebellar volume loss. No significant hippocampal atrophy. Ventricles and extra-axial spaces are normal. No inferior displacement of cerebellar tonsils. Clivus and pituitary gland are normal. Internal and external auditory canals: Unremarkable. Cranial nerves VII and VIII complexes: Unremarkable. No enhancement or mass. Cerebellopontine angles: Normal. Paranasal sinuses: Normal. Mastoid air cells: Normal. Calvarium and scalp: Normal. Visualized [place] and dural venous sinuses demonstrate no abnormality. Small caliber distal RIGHT vertebral arteries probably normal variant. Similar findings in 2022. MR/MR iac's wo/w con* [id number] IMPRESSION: 1. Quality is limited by motion artifact on several sequences. 2. No enhancement or mass along the cerebellopontine angles or internal audito ry canals. 3. Moderate small vessel disease with moderate parenchymal volume loss. No pro gression since 2022. 4. No significant mastoid air cell disease.
[2024-09-07] MEDS: gadobenate dimeglumine 20 mL vial IV (14:21)
== END 2024-09-07 13:21 | disposition home or self-care (01) ==
LOC: RAD 13:21
PROVIDERS: PCP Family Medicine; Visit Provider Specialist
DX: H90.3 Sensorineural hearing loss, bilateral (principal); R93.0 Abnormal findings on diagnostic imaging of skull and head, not elsewhere classified; G31.89 Other specified degenerative diseases of nervous system
CPT/HCPCS: 70553; A9577

== ENCOUNTER 2024-09-18 20:34 | Emergency (ER) | payer MEDICARE, OTHER, SELFPAY ==
[2024-09-18 20:39] VITALS: BP 170/87; PULSE 75; RESP 18; TEMP 37.1; O2SAT 85
--- NOTE | 2024-09-18 20:43 | XRR_ITS ---
PROCEDURE INFORMATION: Exam: XR Chest Exam date and time: 09/18/2024 8:44 PM Age: 79 years old Clinical indication: Shortness of breath; SOB TECHNIQUE: Imaging protocol: Radiologic exam of the chest. Views: 1 view. COMPARISON: CR XR chest 2V* [id number] 10/27/2017 10:19 AM FINDINGS: Lungs: Emphysematous change when correlated with prior exam. Small amount of basilar atelectasis. No focal infiltrate or consolidation. Pleural spaces: No pleural effusion or pneumothorax. Heart/Mediastinum: Borderline prominent cardiac size. Bones/joints: Visualized osseous structures show no acute abnormality. XR/XR chest 1V portable [id number] IMPRESSION: 1. Borderline cardiac size. 2. Emphysematous change and small amount of basilar atelectasis. 3. No acute findings otherwise.
--- NOTE | 2024-09-18 20:49 | ECG_ITS ---
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 Measurements Intervals [place] Rate: 59 P: 61 [place]: 198 QRS: 60 QRSD: 94 T: 64 QT: 369 QTc: 367 Interpretive Statements SINUS BRADYCARDIA WITH SINUS ARRHYTHMIA Compared to ECG 11/06/2022 16:53:43 No significant changes Electronically Signed On 09-19-2024 16:47:24 CDT by Eve Tran M.D. [id number]
--- NOTE | 2024-09-18 20:56 | W.ED.SOB ---
HPI - SOB/Dyspnea General: Chief Complaint: Shortness of Breath/Dyspnea Stated Complaint: Low O2 Time Seen by Provider: 09/18/24 20:40 Source: patient Mode of arrival: ambulatory Limitations: no limitations History of Present Illness: HPI Narrative: 79-year-old female states she checked her pulse ox at home earlier she states device that it was 40. states that she had had normal color states she had some slight confusion but no severe confusion she denied ever having any shortness of breath or chest pain. They believed it was an error but wanted to have her checked out she denies any cough denies any fever denies any vomiting Associated symptoms: Deny abdominal pain, chest pain, fever(s), nausea or vomiting Related Data Home Medications ?Medication ?Instructions ?Recorded ?Confirmed dextromethorphan-guaifenesin 30 1 tab PO Q12H PRN 07/11/19 10/07/22 mg-600 mg tablet extended laoztfn78 hr (Mucinex DM) loratadine 10 mg tablet (Claritin) 10 mg PO DAILY 07/11/19 10/07/22 metformin 1,000 mg tablet 1,000 mg PO DAILY 07/11/19 10/07/22 venlafaxine 75 mg tablet 18.75 mg PO DAILY 07/11/19 10/07/22 hydrocodone 10 mg-acetaminophen 2 tab PO QID PRN 08/02/19 10/07/22 325 mg tablet alprazolam 0.5 mg tablet 0.5 mg PO DAILY 03/08/20 10/07/22 trazodone 50 mg tablet 50 mg PO DAILY 03/08/20 10/07/22 baclofen 10 mg tablet 10 mg PO TID 10/07/22 10/07/22 celecoxib 200 mg capsule (Celebrex) 200 mg PO DAILY 10/07/22 10/07/22 oxybutynin chloride 10 mg 10 mg PO DAILY 10/07/22 10/07/22 tablet,extended release 24 hr psyllium husk 3.4 gram/5.4 gram 1 tbsp PO DAILY 10/07/22 10/07/22 oral powder (Metamucil) Previous Rx's ?Medication ?Instructions ?Recorded lisinopril 10 mg tablet 10 mg PO BID 90 days #180 tabs 08/09/19 aspirin 81 mg tablet,delayed 81 mg PO DAILY #30 tabs 11/06/22 release atorvastatin 40 mg tablet 40 mg PO DAILY #30 tabs 11/06/22 clopidogrel 75 mg tablet 75 mg PO DAILY #30 tabs 11/06/22 Allergies Allergy/AdvReac Type Severity Reaction Status Date / Time No Known Allergies Allergy Verified 09/18/24 20:36 Review of Systems Const: Denies: fever(s), chills, body aches or change in appetite ENMT: Denies: throat pain or dental pain Card: Denies: chest pain Resp: Denies: dyspnea GI: Denies: abdominal pain, nausea, vomiting or diarrhea Musc: Denies: neck pain or back pain Skin/Breast: Denies: rash Neuro: Denies: headache(s) PFSH ED PFSH: Medical History Osteoporosis Asthma Arthritis Chest pain HTN (hypertension) Diabetes mellitus Surgical History 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 Kam S/P shoulder surgery Left rotator cuff surgery Previous back surgery X2 S/P total abdominal hysterectomy and bilateral salpingo-oophorectomy (~1995) Performed [address] Pritchard at [facility] in [place], [place]. Family History Father Myocardial infarction Brother Cancer colon ca Social History Smoking and tobacco/nicotine status: former use of tobacco/nicotine Alcohol intake: never Substance/Drug Use: never Physical Exam Const: COMMON NORMALS: no acute distress, patient oriented x3 and healthy appearing HENMT: COMMON NORMALS: normocephalic and atraumatic HEAD & SCALP: normocephalic and atraumatic Eye: COMMON NORMALS: conjunctivae normal CONJUNCTIVA: Yes conjunctivae normal Neck/C-Spine: COMMON NORMALS: full ROM and supple Chest: COMMONS NORMALS: normal inspection of the chest Resp: COMMON NORMALS: normal respiratory effort, No retractions, No use of accessory muscles and clear to auscultation bilaterally AUSCULTATION: clear to auscultation bilaterally Cardio: COMMON NORMALS: regular rate, regular rhythm and No murmurs present (Cardio) RATE: regular rate RHYTHM: regular rhythm GI: COMMON NORMALS: Normal to inspection, nondistended, normoactive bowel sounds present, Soft to palpation, non-tender and no masses PALPATION: Yes Soft to palpation Extremity: COMMON NORMALS: normal to inspection and full ROM Neuro: COMMON NORMALS: patient oriented x3, moves all extremities and no focal motor deficits Psych: COMMON NORMALS: mental status grossly normal, Normal thought process present and cooperative THOUGHT PROCESS: Normal thought process present Skin: COMMON NORMALS: no rashes or lesions noted and no wounds GENERAL SKIN EXAM: no rashes or lesions noted Course Vital Signs: Vital signs: Vital Signs Temperature 98.7 F 09/18/24 20:39 Pulse Rate 59 L 09/18/24 23:10 Respiratory Rate 16 09/18/24 23:10 Blood Pressure 111/85 09/18/24 23:10 Pulse Oximetry 99 09/18/24 23:10 Oxygen Delivery Me thod Nasal Cannula 09/18/24 23:10 Oxygen Flow Rate 2 09/18/24 23:10 MDM - SOB/Dyspnea Medical Decision Making Patient presents here with hypoxia she had some mild chest pains her troponins are negative CTA shows no PE she did qualify for 2 L oxygen we will start her on home oxygen she has to follow-up with PCP return if worsening she understands agrees to plan. Medical Records I reviewed the patient's medical records. Lab Data I reviewed the patient's lab results. 09/18/24 20:55 09/18/24 20:55 Labs/Radiology: Radiology Impressions Chest X-Ray 09/18/24 20:43 IMPRESSION: 1. Borderline cardiac size. 2. Emphysematous change and small amount of basilar atelectasis. 3. No acute findings otherwise. Chest CTA 09/18/24 22:15 IMPRESSION: 1. No evidence of pulmonary embolus. 2. No acute pulmonary findings. 3. Thyroid nodules measuring up to 3.0 cm. Ultrasound follow-up is recommended. COMMENTS: Consistent with the [employer] [employer]'s Incidental Findings Committee white paper (J Am Jaqueline Radiol 2015): In patients aged 35 years and older with an incidental thyroid nodule equal to or greater than 1.[address], MRI or extrathyroidal US, further evaluation with dedicated thyroid US is recommended for patients with normal life expectancy and without comorbidities. For smaller nodules without suspicious features, no further evaluation or follow up is recommended. Laboratory Results WBC 4.61 10^3/uL (3.29-11.43) 09/18/24 20:55 RBC 4.78 10^6/uL (3.85-5.65) 09/18/24 20:55 Hgb 13.80 g/dL (11.27-16.99) 09/18/24 20:55 Hct 44.7 % (36-47) 09/18/24 20:55 MCV 93.5 fl (85-98) 09/18/24 20:55 MCH 28.9 pg (27-33) 09/18/24 20:55 MCHC 30.9 g/dL (30-55) 09/18/24 20:55 RDW 13.4 % (12.1-15.1) 09/18/24 20:55 Plt Count 177 10^3/cmm (157-399) 09/18/24 20: MPV 9.3 fL (7.4-10.4) 09/18/24 20:55 Neut % (Auto) 69.7 % 09/18/24 20:55 Lymph % (Auto) 22.8 % 09/18/24 20:55 Nolan % (Auto) 5.6 % 09/18/24 20:55 Eos % (Auto) 1.1 % 09/18/24 20:55 Baso % (Auto) 0.4 % 09/18/24 20:55 Neut # (Auto) 3.21 10^3/uL (1.8-7.7) 09/18/24 20:55 Lymph # (Auto) 1.1 10^3/uL (0.8-4.8) 09/18/24 20:55 Nolan # (Auto) 0.3 10^3/uL (0.2-0.9) 09/18/24 20:55 Eos # (Auto) 0.1 10^3/uL (0.0-0.8) 09/18/24 20:55 Baso # (Auto) 0.0 10^3/uL (0.0-0.1) 09/18/24 20:55 Nucleated RBC % (auto) 0 % 09/18/24 20:55 Nucleated RBCs # 0.0 /100WBC 09/18/24 20:55 Sodium 141 mmol/L (136-145) 09/18/24 20:55 Potassium 4.5 mmol/L (3.5-5.1) 09/18/24 20:55 Chloride 105 mmol/L (98-107) 09/18/24 20:55 Carbon Dioxide 27 mmol/L (22-29) 09/18/24 20:55 Anion Gap 13.5 (5-19) 09/18/24 20:55 BUN 32 mg/dL (8-23) H 09/18/24 20:55 Creatinine 1.3 mg/dL (0.5-0.9) H 09/18/24 20:55 GFR Calculation Not Reportable 09/18/24:55 Glucose 141 mg/dL (65-115) H 09/18/24 20:55 Calculated Osmolality 301 mOsm/kg (285-295) H 09/18/24 20:55 Calcium 9.9 mg/dL (8.5-10.5) 09/18/24 20:55 Total Bilirubin 0.3 mg/dL (0.15-1.2) 09/18/24 20:55 AST 12 U/L (0-32) 09/18/24 20:55 ALT 11 U/L (0-33) 09/18/24 20:55 Alkaline Phosphatase 58 U/L (35-105) 09/18/24 20:55 Troponin T Baseline 11 ng/L (0-10) H 09/18/24 20:55 Troponin T 120 Minute 10.41 ng/L (0-10) H 09/18/24 22:42 Delta Troponin T -0.59 ABS# (0-10) L 09/18/24 22:42 NT-Pro-B Natriuret Pep 69 pg/mL (0-450) 09/18/24 20:55 Total Protein 6.2 g/dL (6.6-8.7) L 09/18/24 20:55 Albumin 3.9 g/dL (3.5-5.2) 09/18/24 20:55 Globulin 2.3 g/dL (1.3-4.6) 09/18/24 20: TSH 0.09 uIU/mL (0.27-4.20) L 09/18/24 20:55 All radiology interpretation(s) finalized by discharge EKG Data EKG 1: I personally reviewed and interpreted this EKG as follows: EKG Interpretation Date: 09/18/24 EKG interpretation time: 20:49 Interpretation: sinus reymundo hr [address] or t wave abnormalities qrs 94 qtc 368 Discharge Plan Discharge Patient Disposition: Home Clinical Impression: Hypoxia, Chest pain Condition: Stable Prescriptions: No Action loratadine [Claritin] 10 mg tablet 10 mg PO DAILY metformin 1,000 mg tablet 1,000 mg PO DAILY Mucinex DM 30-600 mg tablet extended release 12 hr 1 tab PO Q12H PRN venlafaxine 75 mg tablet 18.75 mg PO DAILY hydrocodone-acetaminophen 10-325 mg tablet 2 tab PO QID PRN alprazolam 0.5 mg tablet 0.5 mg PO DAILY trazodone 50 mg tablet 50 mg PO DAILY Rx Instructions: 150mg AM and 50mg in PM baclofen 10 mg tablet 10 mg PO TID oxybutynin chloride 10 mg tablet extended release 24hr 10 mg PO DAILY celecoxib [Celebrex] 200 mg capsule 200 mg PO DAILY Metamucil 3.4 gram/5.4 gram powder 1 tbsp PO DAILY Rx Instructions: mix into at least 8 oz of water or juice before administering lisinopril 10 mg tablet 10 mg PO BID 90 Days Qty: 180 3RF clopidogrel 75 mg tablet 75 mg PO DAILY Qty: 30 0RF atorvastatin 40 mg tablet 40 mg PO DAILY Qty: 30 0RF aspirin 81 mg tablet,delayed release (DR/EC) 81 mg PO DAILY Qty: 30 0RF Discharge Orders: Discharge ED (Routine); Ordered 09/18/24 Ordered By: Miesha Xavier Other Ambulatory Orders: DME: Oxygen (Order) Location: None Selected Ordered By: Miesha Xavier Referrals: Darwin Peralta MD [Primary Care Provider] - 4-7 days Discharge Diet: Advance as tolerated Discharge Activity: Resume usual activity Patient Instructions: Dyspnea (ED) Print Language: Pakistani Coding Level of Care Code ED Felt Puller for Oumar Bradley
[2024-09-18 21:05] VITALS: BP 96/75; PULSE 65; RESP 16
[2024-09-18 21:12] LABS: Basophils % 0.4 %; Eosinophils # 0.1 10^3/uL (0.0-0.8); Eosinophils % 1.1 %; Hematocrit 44.7 % (36-47); Lymphocytes # 1.1 10^3/uL (0.8-4.8); Lymphocytes % 22.8 %; Mean Corpuscular HGB Conc 30.9 g/dL (30-55); Mean Corpuscular Hemoglobin 28.9 pg (27-33); Mean Corpuscular Volume 93.5 fl (85-98); Mean Platelet Volume 9.3 fL (7.4-10.4); Monocytes # 0.3 10^3/uL (0.2-0.9); Monocytes % 5.6 %; Neutrophils # 3.21 10^3/uL (1.8-7.7); Neutrophils % 69.7 %; Nucleated Red Blood Cells % 0 %; Platelet Count 177 10^3/cmm (157-399); Red Blood Count 4.78 10^6/uL (3.85-5.65); Red Cell Distribution Width 13.4 % (12.1-15.1); White Blood Count 4.61 10^3/uL (3.29-11.43)
[2024-09-18 21:38] LABS: Alanine Aminotransferase 11 U/L (0-33); Albumin Level 3.9 g/dL (3.5-5.2); Alkaline Phosphatase 58 U/L (35-105); Anion Gap 13.5 (5-19); Aspartate Amino Transferase 12 U/L (0-32); Blood Urea Nitrogen 32 mg/dL (8-23); Calcium 9.9 mg/dL (8.5-10.5); Carbon Dioxide 27 mmol/L (22-29); Chloride 105 mmol/L (98-107); Creatinine Clr Calc Pharmacy 38.4773; Globulin 2.3 g/dL (1.3-4.6); Glucose 141 mg/dL (65-115); NT Pro B Type Natriuretic Pept 69 pg/mL (0-450); Osmolality Calculated 301 mOsm/kg (285-295); Potassium 4.5 mmol/L (3.5-5.1); Sodium 141 mmol/L (136-145); Thyroid Stimulating Hormone 0.09 uIU/mL (0.27-4.20); Total Bilirubin 0.3 mg/dL (0.15-1.2); Total Protein 6.2 g/dL (6.6-8.7)
[2024-09-18 22:00] VITALS: BP 96/54; PULSE 59; RESP 16; O2SAT 98
[2024-09-18 22:09] VITALS: O2SAT 83; O2SAT 89; O2SAT 95
--- NOTE | 2024-09-18 22:15 | CTR_ITS ---
PROCEDURE INFORMATION: Exam: CTA Chest With Contrast Exam date and time: 09/18/2024 10:49 PM Age: 79 years old Clinical indication: Shortness of breath; SOB with hypoxia; Additional info: Cp TECHNIQUE: Imaging protocol: Computed tomographic angiography of the chest with contrast. Exam focused on the arteries. 3D rendering (Not supervised by radiologist): MIP and/or 3D reconstructed images were created by the technologist. Radiation optimization: All CT scans at this facility use at least one of these dose optimization techniques: automated exposure control; mA and/or kV adjustment per patient size (includes targeted exams where dose is matched to clinical indication); or iterative reconstruction. Contrast material: OMNI 350; Contrast volume: 64 ml; Contrast route: INTRAVENOUS (IV); COMPARISON: CR (CHEST, ) 09/18/2024 8:44 PM RADIATION DOSE METRICS: Total DLP (mGy-cm): 369.9 FINDINGS: Pulmonary arteries: Normal. No pulmonary emboli. Aorta: Unremarkable. No aortic aneurysm. No aortic dissection. Thyroid: Multiple thyroid nodules, the largest on the left measuring 3.0 cm. Lungs: Mild dependent atelectasis in both lungs. The lungs otherwise are clear. No consolidation. Pleural spaces: Unremarkable. No pneumothorax. No pleural effusion. Heart: Unremarkable. No cardiomegaly. No pericardial effusion. Lymph nodes: Prominent mediastinal and hilar lymph nodes are most likely reactive. Bones/joints: Mild degenerative changes in the spine with leftward curvature. No acute fracture. Soft tissues: Unremarkable. CT/CT angio chest PE protcl [id number] IMPRESSION: 1. No evidence of pulmonary embolus. 2. No acute pulmonary findings. 3. Thyroid nodules measuring up to 3.0 cm. Ultrasound follow-up is recommended. COMMENTS: Consistent with the [employer]'s Incidental Findings Committee white paper (J Am Jaqueline Radiol 2015): In patients aged 35 years and older with an incidental thyroid nodule equal to or greater than 1.[address], MRI or extrathyroidal US, further evaluation with dedicated thyroid US is recommended for patients with normal life expectancy and without comorbidities. For smaller nodules without suspicious features, no further evaluation or follow up is recommended.
--- NOTE | 2024-09-18 22:16 | ECG_ITS ---
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 Measurements Intervals [place] Rate: 55 P: 65 MT: 200 QRS: 61 QRSD: 100 T: 61 QT: 374 QTc: 360 Interpretive Statements SINUS BRADYCARDIA WITH SINUS ARRHYTHMIA Compared to ECG 09/18/2024 20:49:03 No significant changes Electronically Signed On 09-19-2024 16:45:17 CDT by Eve Tran M.D. [email or web address]
[2024-09-18 22:36] LABS: Troponin(5th) Baseline 11 ng/L (0-10)
[2024-09-18] MEDS: iohexol 350 mg/mL 500 mL Btl (per mL) IV (22:52)
[2024-09-18 23:04] LABS: Troponin 5 2HR 10.41 ng/L (0-10)
[2024-09-18 23:10] VITALS: BP 111/85; PULSE 59; RESP 16; O2SAT 99
[2024-09-18 23:12] LABS: Troponin 5 2HR Delta -0.59 ABS# (0-10)
[2024-09-18 23:45] VITALS: BP 171/74; PULSE 52; RESP 16; O2SAT 98
== END 2024-09-18 23:49 | disposition home or self-care (01) ==
PROVIDERS: Emergency Provider Emergency Medicine; PCP Family Medicine
DX: R09.02 Hypoxemia (principal); R07.9 Chest pain, unspecified; Z79.02 Long term (current) use of antithrombotics/antiplatelets; Z79.82 Long term (current) use of aspirin; Z87.891 Personal history of nicotine dependence; E11.9 Type 2 diabetes mellitus without complications; I10 Essential (primary) hypertension
CPT/HCPCS: 36415; 71045; 71275; 80053; 83880; 84443; 84484; 85025; 93005; 94760; 99285

== ENCOUNTER 2025-01-25 12:41 | Outpatient (CLI) | payer MEDICARE, OTHER, SELFPAY ==
--- NOTE | 2025-01-25 12:50 | US_ITS ---
WS: [id number] ULTRASOUND-GUIDED THYROID FNA's, bilateral HISTORY: Bilateral thyroid nodules. Procedure, risks, and complications were explained to the patient. Consent has been obtained. Comparison: 10/04/2024 Prior imaging studies reviewed. TI-RADS 4 nodules are targeted. Patient has numerous nodules which within each thyroid which is enlarged. The skin is cleansed with ChloraPrep and anesthetized with 1% buffered lidocaine. FNA performed with 25 gauge needles. nuclear technologist is present to fix slides. RIGHT: RIGHT nodule in the mid gland is targeted. LEFT: LEFT heterogeneous nodule in the mid gland is targeted. US/US guide FNA [id number] IMPRESSION: Uncomplicated FNA of bilateral thyroid nodules. Final pathology results pending .
== END 2025-01-25 12:42 | disposition home or self-care (01) ==
LOC: RAD 12:46
PROVIDERS: PCP Family Medicine; Visit Provider Family Medicine
DX: E04.2 Nontoxic multinodular goiter (principal)
CPT/HCPCS: 10005; 88173